=== PATIENT | male | born 1990 | race Caucasian/White ===

== ENCOUNTER 2023-07-26 21:26 | Emergency (ER) | payer OTHER, SELFPAY ==
[2023-07-26 21:28] VITALS: BP 136/80
[2023-07-26 22:15] VITALS: BMI 26.8
[2023-07-26 22:37] LABS: % Basophils 0.5 % (0-2); % Eosinophils 0.7 % (0-6); % Immature Granulocytes 0.4 % (0-0.5); % Lymphocytes 31.9 % (20.5-51.1); % Monocytes 4.9 % (1.7-9.3); % Neutrophils 61.6 % (42.2-75.2); Absolute Basophils 0.1 10^3/uL (0-0.2); Absolute Eosinophils 0.1 10^3/uL (0-0.7); Absolute Lymphocytes 3.3 10^3/uL (1.2-3.4); Absolute Monocytes 0.5 10^3/uL (0.1-0.6); Absolute Neutrophils 6.4 10^3/uL (1.4-6.5); Hematocrit 43.3 % (39.0-52.0); Hemoglobin 15.2 g/dL (13.0-18.0); Mean Corp Hgb Conc. 35.1 g/dL (33.0-37.0); Mean Corpuscular Hgb 31.2 pg (27.0-31.0); Mean Corpuscular Volume 88.9 fL (80.0-94.0); Mean Platelet Volume 10.1 fL (7.4-10.4); Nucleated Red Blood Cells % 0 % (-); Platelet Count 201 10^3/uL (130-400); Red Blood Cell Count 4.87 10^6/uL (4.70-6.10); Red Cell Dist. Width 12.4 % (11.5-14.5); White Blood Cell Count 10.4 10^3/uL (4.8-10.8)
[2023-07-26 22:38] LABS: Urine Albumin Negative (Neg - Trace); Urine Bilirubin Negative (Negative); Urine Character Clear (Clear); Urine Color Yellow; Urine Glucose Negative (Negative); Urine Ketone Negative (Negative); Urine Leukocyte Negative (Negative); Urine Nitrite Negative (Negative); Urine Occult Blood Negative (Negative); Urine Urobilinogen Negative (Neg - 1+)
[2023-07-26 22:49] LABS: ALT (SGPT) 18 U/L (0-50); AST (SGOT) 25 U/L (17-59); Albumin 4.3 g/dl (3.5-5.0); Alkaline Phosphatase 49 U/L (38-126); Blood Urea Nitrogen 26 mg/dl (9-20); Calcium 9.3 mg/dl (8.4-10.2); Carbon Dioxide 26 mmol/L (22-30); Chloride 105 mmol/L (98-107); Estimated Creatinine Clearance 92 ml/min; Glucose 115 mg/dl (70-99); Lipase 283 U/L (23-300); Potassium 3.9 mmol/L (3.5-5.1); Sodium 139 mmol/L (135-145); Total Bilirubin 0.5 mg/dl (0.2-1.3); Total Protein 7.1 g/dl (6.3-8.2); eGFR > 60.00
--- NOTE | 2023-07-26 23:49 | ED.GENMED ---
History of Present Illness
General
Chief Complaint: Abdominal Pain
Source: patient
Time Seen by Provider: 07/26/23 22:51
Travel History
Have you had any contact with someone who has COVID-19?: No
Do you have any symptoms of coronavirus? Fever > 100 degrees, chills, cough, shortness of breath, sore throat, loss of taste or smell, muscle aches, or headache?: No
History of Present Illness
History of Present Illness:
33-year-old male with past medical history of asthma and GERD presenting to the emergency department for evaluation of abdominal pain that started about 10 days ago while he was doing crunches stating he felt a sudden spasm in the umbilical area and
as if something was strained stating he was unable to move for a few minutes. Patient reports he has had continued and constant pain around the umbilicus during this time and has also been noting constipation where he will not have a bowel movement
for around 4 days. Patient reports constipation seems to be ongoing since January and is not sure if this is related. Denies any fevers, chills, rigors. Surgical history was noted for previous appendectomy. Does state he has had a little bit of
decreased p.o. intake during this time as well.
Past History
Past History
ED Past Medical History: Asthma and GERD
ED Past Surgical History: Appendectomy, Orthopedic and Other
Social History
Tobacco: Non-smoker
Alcohol: None
Drug: None
Living: with family
Review of Systems
Review of Systems
All Other Systems: ROS reviewed and negative except as documented in HPI and ROS
Phy Exam
Physical Exam
Physical Exam:
GENERAL: Alert , in no apparent distress
EYE: clear conjunctiva b/l
HEAD: NCAT
ENT: o/p clr, mmm.
ABDOMEN: Soft, mildly tender around the umbilicus, no r/g, no cvat, negative Wiseman sign
NEUROLOGICAL: Alert and oriented
SKIN: Warm and dry, skin intact.
MUSCULOSKELETAL: No edema, well perfused.
PSYCH: Normal and appropriate interaction.
Scores
Heart Failure Risk
Heart Failure Risk Score: Not Applicable
Heart Score for Chest Pain Patients
STEMI patient?: Not applicable
Withdrawal Assessment of Alcohol
Withdrawal Assessment Completed?: Not applicable
Course
Orders/Labs/Results
Orders:
Orders
07/26/23 22:18
IV Insert/Care/Rem.- Treatment PRN
07/26/23 22:23
Complete Blood Count/With Diff Urgent
Comprehensive Metabolic Panel Urgent
Lipase Urgent
Urinalysis Reflex To Culture Urgent
Date Specimen was Collected: 07/26/23
Time Specimen was Collected: 22:18
07/27/23 00:00
CT Abd/pelvis W Iv Cont Urgent
Reason For Exam: periumbilical abd pain
Abnormal Lab Results
07/26/23
22:23
MCH 31.2 H pg
(27.0-31.0)
BUN 26 H mg/dl
(9-20)
Glucose 115 H mg/dl
(70-99)
07/26/23 22:23
07/26/23 22:23
Vital Signs
Initial and Last Documented VS:
Initial Vital Signs
Temp Pulse Resp BP Pulse Ox
97.8 F 70 24 136/80 99
07/26/23 21:28 07/26/23 21:28 07/26/23 21:28 07/26/23 21:28 07/26/23 21:28
Last Documented Vital Signs
Temp Pulse Resp BP Pulse Ox
97.8 F 70 24 136/80 99
07/26/23 21:28 07/26/23 21:28 07/26/23 21:28 07/26/23 21:28 07/26/23 21:28
MDM/Problems Addressed
Differential Diagnosis Includes:
Abdominal wall muscle strain, hernia, given it has been 10 days since injury I do not have concern for abdominal aneurysm or dissection, previous appendectomy so no concern for appendicitis
MDM/Problems Addressed:
33-year-old male present emergency department for evaluation of periumbilical abdominal pain that started 10 days ago while doing sit ups. Based off the mechanism symptoms seem to be most consistent with an abdominal wall muscle strain. Given the
duration of symptoms will obtain CT to assess for any further injury or surgical complication however I feel this is less likely. Labs and urine have been initiated in triage and are reassuring.
*Radiology
Radiology exam reviewed: radiology read reviewed
*Pulse Oximetry
Patient hypoxic: no
*Critical Care Note
Total Time (30-74mins, 75-104mins- exclusive of procedures): Not Applicable
Patient Management
Escalation/DeEscalation of care consider admission/obs:
Patient CT scan without any acute intra-abdominal pathologies identified. Patient is otherwise stable for discharge home. My suspicion is for a strained abdominal wall muscle given patient's symptoms started while he was performing sit ups.
ED Attending Note
-
Portions of this chart may have been created with voice recognition software.� Occasional wrong word or��sound alike� substitutions may have occurred due to the inherent limitations of voice recognition software.
Discharge Plan
Departure
Patient Disposition: Home (Routine Discharge)
Date of Disposition: 07/27/23
Time of Disposition: 00:50
Patient with high blood pressure during this ER visit?: No
Discharge Problem:
Abdominal pain
Instructions: Abdominal Muscle Strain (DC)
Prescriptions:
No Action
amoxicillin 500 mg Capsule
1,000 mg PO DAILY
loratadine [Claritin] 10 mg Tablet
10 mg PO DAILY
Referrals:
Sadi Dooley DO [Family Provider] -
Interventions
Interventions:
*Risk Screen - Suicide Last Done: 07/26/23 21:28
*General Assessment Last Done: 07/26/23 21:45
*Neglect/Abuse Screening Last Done: 07/26/23 21:28
ED- Fall Risk Assessment Last Done: 07/26/23 21:45
MD-Nzxidx-Pitduozvlu Assessment Last Done: 07/26/23 21:45
Discharge Date and Time
Print Language: KYRGYZ
[2023-07-27 01:20] VITALS: BP 114/68
== END 2023-07-27 01:20 | disposition home or self-care (01) ==
LOC: EMR 21:26
PROVIDERS: EMERGENCY PHYSICIAN Emergency Medicine; FAMILY PHYSICIAN Family Medicine
DX: R10.33 Periumbilical pain (principal); S39.011A Strain of muscle, fascia and tendon of abdomen, initial encounter; X58.XXXA Exposure to other specified factors, initial encounter; Y93.B9 Activity, other involving muscle strengthening exercises; J45.909 Unspecified asthma, uncomplicated; K21.9 Gastro-esophageal reflux disease without esophagitis; K59.00 Constipation, unspecified
CPT/HCPCS: 99284; 74177; 80053; 81003; 83690; 85025; Q9967

== ENCOUNTER 2024-11-12 16:36 | Emergency (ER) | payer OTHER, SELFPAY ==
[2024-11-12 16:38] VITALS: BP 137/91
--- NOTE | 2024-11-12 16:56 | ED.GENMED ---
History of Present Illness
General
Chief Complaint: Musculo-Skeletal Complaint
Source: patient
Exam Limitations: none
Time Seen by Provider: 11/12/24 16:45
History of Present Illness
History of Present Illness:
34yo right hand dominant male with a history of prior R labrum tear 2 years ago presenting for evaluation of left shoulder pain. Symptoms began 5 days ago. He denies any specific trauma but was doing shoulder press a few days before his pain
started. He reports pain that originates in his left shoulder which is causing the muscles of his neck to feel tight. He is also having intermittent 'nerve pain' shooting down the left arm into the 4th and 5th digits. Pain is worse with sitting
and better if the arm is hanging. He was seen by his PCP yesterday for these symptoms and was given a prescription for a Medrol dose pack which is not helping. He has also been taking Tylenol and ibuprofen without relief. He has an appt in 3 days
with orthopedics but was worried that his shoulder was dislocating so decided to come to the ED for evaluation.
Past History
Past History
ED Past Medical History: Asthma and GERD
ED Past Surgical History: Appendectomy, Orthopedic and Other
Social History
Tobacco: Non-smoker
Alcohol: None
Drug: None
Living: with family
Phy Exam
General Physical Exam
General Presentation: well appearing and no apparent distress
General Skin: warm and dry
General Habitus: normal
General Mental: alert
ENT Exam
ENT Exam: normocephalic
Neurological Exam
Neurological Exam: alert
Beckie Coma Scale
Eye Opening: Spontaneous
Verbal Response: Oriented
Motor Response: Obeys Commands
GCS Total Score: 15
Musculoskeletal Exam
Musculoskeletal Exam: other (L shoulder: Normal to inspection. +Tenderness to posterior aspect of joint. ROM decreased 2/2 pain. 2+ radial pulse and sensation intact. )
Skin Exam
Skin Exam: normal color and warm/dry
Psychiatric Exam
Psychiatric Exam: normal mood/affect
Course
Orders/Labs/Results
Orders:
Orders
11/12/24 16:56
Ketorolac [Toradol] 30 mg IM NOW STA
CR Shoulder - Left Min 2 View* Urgent
Comment:
Reason For Exam: pain
Vital Signs
Initial and Last Documented VS:
Initial Vital Signs
Temp Pulse Resp BP Pulse Ox
98.2 F 86 16 137/91 98
11/12/24 16:38 11/12/24 16:38 11/12/24 16:38 11/12/24 16:38 11/12/24 16:38
Last Documented Vital Signs
Temp Pulse Resp BP Pulse Ox
98.2 F 86 16 137/91 98
11/12/24 16:38 11/12/24 16:38 11/12/24 16:38 11/12/24 16:38 11/12/24 16:59
MDM/Problems Addressed
Differential Diagnosis Includes:
34yoM here with L shoulder pain x 5 days. Seen by PCP and taking Medrol dose pack without improvement. Worried that his shoulder is dislocating. Joint is normal to inspection. Range of motion decreased secondary to pain. LUE is neurovascularly
intact. Differential diagnosis includes: Sprain, rotator cuff tear, calcific tendinitis, doubt dislocation, doubt fracture
Left shoulder x-rays obtained which interpretation. Patient given IM Toradol for pain relief. A prescription for Robaxin and supportive care discussed. He has an appointment scheduled with orthopedics in 3 days. Patient in agreement with plan
and was discharged in stable condition.
*Pulse Oximetry
SaO2: 98
Oxygen Mode of Delivery: Room air
Patient hypoxic: no
*Critical Care Note
Total Time (30-74mins, 75-104mins- exclusive of procedures): Not Applicable
ED Attending Note
-
Portions of this chart may have been created with voice recognition software.� Occasional wrong word or��sound alike� substitutions may have occurred due to the inherent limitations of voice recognition software.
Discharge Plan
Departure
Patient Disposition: Home (Routine Discharge)
Date of Disposition: 11/12/24
Time of Disposition: 17:47
Patient with high blood pressure during this ER visit?: No
Discharge Problem:
Acute pain of left shoulder
Instructions: Muscle and Bone Pain (DC)
Prescriptions:
New
methocarbamol 750 mg tablet
750 mg PO Q8H PRN (Reason: muscle spasms) Qty: 20 0RF
No Action
amoxicillin 500 mg Capsule
1,000 mg PO DAILY
loratadine [Claritin] 10 mg Tablet
10 mg PO DAILY
Referrals:
Doroteo Villalobos, DO [Family Provider]
Activity Restrictions/Additional Instructions:
Continue taking your Medrol Dosepak. Take Robaxin (muscle relaxer) as needed for spasms. You may also take Tylenol as needed.
Please follow-up with orthopedics on Friday as previously scheduled.
Interventions
Interventions:
*Risk Screen - Suicide Last Done: 11/12/24 16:38
*General Assessment Last Done: 11/12/24 17:23
*Neglect/Abuse Screening Last Done: 11/12/24 16:38
*ED- Fall Risk Assessment Last Done: 11/12/24 17:23
*ED COVID-19 Vaccine History Last Done: 11/12/24 17:23
*ED Influenza Vaccine History Last Done: 11/12/24 17:23
*Nursing Disposition Last Done: 11/12/24 17:55
ED-Musculoskeletal Assessment Last Done: 11/12/24 16:48
Discharge Date and Time
Discharge Date/Time: 11/12/24 17:55
Print Language: LAO
[2024-11-12] MEDS: TORADOL 30 MG IM (17:12)
== END 2024-11-12 17:55 | disposition home or self-care (01) ==
LOC: EMR 16:36
PROVIDERS: EMERGENCY PHYSICIAN Emergency Medicine; FAMILY PHYSICIAN Internal Medicine
DX: M25.512 Pain in left shoulder (principal); J45.909 Unspecified asthma, uncomplicated; K21.9 Gastro-esophageal reflux disease without esophagitis
CPT/HCPCS: 99284; 96372; 73030